=== PATIENT | female | born 1985 | race Caucasian/White ===

== ENCOUNTER 2019-11-26 07:29 | Emergency (ER) | payer OTHER, SELFPAY ==
[2019-11-26 07:42] VITALS: BP 135/84; PULSE 60; RESP 16; TEMP 36.5; O2SAT 100; BMI 37.8
[2019-11-26 07:50] LABS: Microscopic, Urine URINE MICROSCOPIC (MICROSCOPIC)
[2019-11-26 07:51] LABS: Appearance,Urine CLEAR (Clear); Bilirubin,Urine Negative (Negative); Blood, Urine 3+ (Negative); Color,Urine YELLOW (Yellow); Glucose,Urine (UA) Negative (Negative); Ketones,Urine 1+ (Negative); Leukocyte Esterase,Urine Negative (Negative); Nitrate,Urine Negative (Negative); PH,Urine 5.5 (5.0-8.5); Protein,Urine TRACE (Negative); Specific Gravity, Urine >= 1.030 (1.005-1.030); Urobilinogen,Urine 0.2 EU/dl (0.2)
[2019-11-26 07:59] LABS: Amorphous Sediment,Urine 1+ /lpf; RBC,Urine 20-50 #/hpf (0-3)
[2019-11-26 08:05] LABS: Basophils # 0.1 K/mm3 (0-0.2); Basophils % 0.9 % (0.1-2.0); Eosinophils # 0.1 K/mm3 (0.0-0.4); Eosinophils % 1.1 % (0.1-12.0); Hematocrit 44.8 % (37.0-47.0); Hemoglobin 15.5 g/dL (12.2-16.2); Lymphocytes # 1.6 K/mm3 (0.7-4.5); Lymphocytes % 14.9 % (10-50); Mean Corpuscular HGB Conc 34.5 g/dL (31.8-35.4); Mean Corpuscular Hemoglobin 30.6 pg (27.0-31.2); Mean Corpuscular Volume 88.8 fl (81-99); Mean Platelet Volume 7.9 fl (7.4-10.4); Monocytes # 0.4 K/mm3 (0.1-1.0); Monocytes % 3.8 % (1.7-9.3); Neutrophils # 8.5 K/mm3 (1.8-7.8); Neutrophils % 79.3 % (37.0-80.0); Platelet Count 274 K/mm3 (142-424); Red Blood Count 5.05 M/mm3 (4.20-5.40); White Blood Count 10.7 K/mm3 (4.8-10.8)
[2019-11-26 08:08] LABS: Chloride 96 mmol/L (98-107)
[2019-11-26 08:09] LABS: Sodium 138 mmol/L (136-145)
[2019-11-26 08:11] LABS: Alanine Aminotransferase 25 U/L (12-78); Albumin/Globulin Ratio 1.2 (1.1-1.8); Alkaline Phosphatase 96 U/L (38-126); Aspartate Amino Transferase 21 U/L (14-36); Bilirubin,Total 0.4 mg/dl (0.2-1.3); Blood Urea Nitrogen 10 mg/dl (7-17); Carbon Dioxide 26 mmol/L (22.0-30.0); Creatinine Clearance Estimated 189 mL/min (50-200); Estimated Glomerular Filt Rate 114 ml/min (>60); GFR (African American) 138 ML/MIN (>60); Globulin 4.1 g/dL (1.3-3.2); Total Protein,Serum 9.1 g/dl (6.3-8.2)
[2019-11-26 08:12] LABS: Calcium 10.6 mg/dl (8.4-10.2); Glucose 138 mg/dl (74-100)
--- NOTE | 2019-11-26 08:32 | HMH.EDABDPAI ---
ED Disposition Clinical Impression: Gastroenteritis Disposition: Home, Self-Care Condition on Discharge: Good Instructions: DI for Acute Abdomen Additional Instructions: Follow-up with your primary care doctor if symptoms fail to improve. Obviously if condition worsens please return back to the emergency department Prescriptions: Pantoprazole Sodium [Protonix 40mg (granule) packet] 40 mg PO DAILY 20 Days #20 packet Transmission Status: Pending to [facility] #[id number] Ondansetron [Zofran 4mg ODT] 4 mg PO TID PRN 6 Days #12 tab.rapdis PRN Reason: Nausea Transmission Status: Pending to [facility] #[id number] Referrals: Kait Schuster [Primary Care Provider] - - Critical Care Critical Care Time: No Attestation: On 11/26/19, the high probability of a clinically significant, sudden or life threatening deterioration of the following system(s) required my full and direct attention, intervention and personal management. The time I documented below is in addition to time spent performing reported procedures but includes the following listed in this critical care notation. Medical Decision Making - Medical Records Medical records reviewed: Yes: I reviewed the patient's medical records. - Rolando Inquiry Pt receiving controlled substance: No Vital Signs: 11/26/19 07:42 Temperature 97.7 F Temperature Source Oral Pulse Rate [Right Brachial] 60 Respiratory Rate 16 Blood Pressure [Right Arm] 135/84 Blood Pressure Mean [Right Arm] 101 Blood Pressure Source [Right Arm] Automatic Cuff Blood Pressure Position [Right Arm] Sitting 02 Sat by Pulse Oximetry 100 Oxygen Delivery Method Room Air - Lab Data Lab results reviewed: Yes: I reviewed the patient's lab results. Lab Results 11/26/19 07:35: Urine Color Yellow, Urine Appearance Clear, Urine pH 5.5, Ur Specific [place] >= 1.030, Urine Protein Trace, Urine Glucose (UA) Negative, Urine Ketones 1+, Urine Blood 3+, Urine Nitrate Negative, Urine Bilirubin Negative, Urine Urobilinogen 0.2, Ur Leukocyte Esterase Negative, Urine RBC 20-50, Urine WBC 3-5, Ur Squamous Epith Cells 10-20, Ur Transition Epith Cell 3-5, Amorphous Sediment 1+, Urine Bacteria None 11/26/19 07:58: WBC 10.7, RBC 5.05, Hgb 15.5, Hct 44.8, MCV 88.8, MCH 30.6, MCHC 34.5, RDW 13.0, Plt Count 274, MPV 7.9, Neut % (Auto) 79.3, Lymph % (Auto) 14.9, Davidson % (Auto) 3.8, Eos % (Auto) 1.1, Baso % (Auto) 0.9, Neut # (Auto) 8.5 H, Lymph # (Auto) 1.6, Davidson # (Auto) 0.4, Eos # (Auto) 0.1, Baso # (Auto) 0.1 11/26/19 07:58: Sodium 138, Potassium 4.0, Chloride 96 L, Carbon Dioxide 26, Anion Gap 20.0 H, BUN 10, Creatinine 0.60, Estimated Creat Clear 189, Estimated GFR 114, Est GFR ( Amer) 138, Glucose 138 H, Calcium 10.6 H, Total Bilirubin 0.4, AST 21, ALT 25, Alkaline Phosphatase 96, Total Protein 9.1 H, Albumin 5.0, Globulin 4.1 H, Albumin/Globulin Ratio 1.2 Result diagrams: 11/26/19 07:58 11/26/19 07:58 Orders (Tests/Meds): ED MEDICATIONS Discontinued Medications Generic Name Dose Route Start Last Admin Trade Name Freq PRN Reason Stop Dose Admin Ondansetron HCl 4 mg 11/26/19 08:26 11/26/19 08:26 Zofran 4mg/2ml Vial IV 11/26/19 08:27 4 mg ONCE ONE Administration Abdominal Pain HPI - General Chief Complaint: Abdominal Pain Stated Complaint: stomach pain Time Seen by Provider: 11/26/19 08:32 Mode of Arrival: Ambulatory Source of Information: Patient Limitations: No Limitations Description of Symptoms (Recalled from ER Triage Doc. by RN): Mom advises that pt c/o belly pain since about 2 am. C/o some nausea - History of Present Illness HPI narrative: 34-year-old female presents the ED with epigastric mild abdominal pain and nausea with 2 or 3 episodes of emesis she chronically feels nausea over the last 2 to 3 days but she is has had some emesis today her mother states that she complains of epigastric pain describes the pain almost as a burning sensation. Kirk
[2019-11-26 08:48] VITALS: BP 135/84; PULSE 65; RESP 16; TEMP 36.6; O2SAT 98
== END 2019-11-26 08:50 | disposition home or self-care (01) ==
PROVIDERS: Emergency Provider Family Medicine; PCP Nurse Practitioner Family
DX: K52.9 Noninfective gastroenteritis and colitis, unspecified (principal); Z88.0 Allergy status to penicillin; Z88.5 Allergy status to narcotic agent
CPT/HCPCS: 80053; 81001; 85025; 96374; 99283; J2405

== ENCOUNTER 2020-07-01 11:17 | Emergency (ER) | payer OTHER, SELFPAY ==
[2020-07-01 11:35] VITALS: BP 145/70; PULSE 92; RESP 14; TEMP 37; O2SAT 99; BMI 35.9
--- NOTE | 2020-07-01 11:47 | HMH.EDUTC ---
[facility] [place] Clinical Impression: Exposure to COVID-19 virus Sinusitis Qualifiers: Sinusitis location: unspecified location Chronicity: acute Recurrence: non-recurrent Qualified Code(s): J01.90 - Acute sinusitis, unspecified Disposition: Home, Self-Care Condition on Discharge: Good Instructions: DI for Sinusitis, Preventing the Spread of Coronavirus Discharge Instructions Additional Instructions: Drink plenty of fluids. Take tylenol for pain or fever. Return if you begin to have difficulty breathing. Follow up with your regular doctor. GO TO THE ER FOR ANY WORSENING SYMPTOMS Prescriptions: Azithromycin [Z-Anthony 250mg Tab*] 250 mg PO UD DOSE PK #6 tab Transmission Status: Received by [facility] Referrals: Jeremías Moy MD [Primary Care Provider] - Time of Disposition: 11:59 Medical Decision Making - Medical Records Medical records reviewed: No: I reviewed the patient's medical records. - Rolando Inquiry Pt receiving controlled substance: No Vital Signs: 07/01/20 11:35 07/01/20 11:58 Temperature 98.6 F 98.6 F Temperature Source Oral Pulse Rate 92 H Pulse Rate [Right Brachial] 92 H Respiratory Rate 14 14 Blood Pressure 145/70 H Blood Pressure [Right Arm] 145/70 H Blood Pressure Mean [Right Arm] 95 Blood Pressure Source [Right Arm] Automatic Cuff Blood Pressure Position [Right Arm] Sitting 02 Sat by Pulse Oximetry 99 Oxygen Delivery Method Room Air Orders (Tests/Meds): ORDERS Category Date Time Status Covid-19 Nasal PCR Sendout [facility] 07/01/20 11:30 Received [facility] [place] - General Stated complaint: covid exposure Time Seen by Provider: 07/01/20 11:47 Mode of Arrival: Ambulatory Source of Information: Patient Limitations: No Limitations Description of Symptoms (Recalled from Triage Doc. by RN): REQUESTING COVID TEST D/T EXPOSURE HEENT Symptoms (Recalled from RN notes): No Resp Symptoms (Recalled from RN notes): No Skin Symptoms (Recalled from RN notes): No MS Symptoms (Recalled from RN notes): No Functional Status (Recalled from RN notes): WNL - History of Present Illness Provider Complaint: She was exposed to covid last week by her sister having it. This patient has had sinus drainage, low grade fever and decreased appetite. She thinks that she may just have a sinus infection, but she needs to be tested for covid. - Related Data Previous Rx's Medication Instructions Recorded Ondansetron [Zofran 4mg ODT] 4 mg PO TID PRN 6 Days #12 11/26/19 tab.rapdis Pantoprazole Sodium [Protonix 40mg 40 mg PO DAILY 20 Days #20 packet 11/26/19 (granule) packet] Azithromycin [Z-Anthony 250mg Tab*] 250 mg PO UD DOSE PK #6 tab 07/01/20 Allergies Allergy/AdvReac Type Severity Reaction Status Date / Time codeine Allergy Verified 11/26/19 07:46 Penicillins Allergy Verified 11/26/19 07:46 promethazine [From Phenergan] Allergy Verified 11/26/19 07:46 - Worker's Comp Is this a Worker's Comp case?: No [facility] History - Hepatitis A Screen Drug use history?: No High risk sexual behaviors?: No History of sexually transmitted infection?: No Currently employed?: No Childcare worker?: No Do you have indoor plumbing?: Yes Do you have electricity?: Yes Attestation statement:: This patient has been screened for Hepatitis A risk factors. I have reviewed the patient's past medical history: Yes Medical History: Denies:: Cancer, Diabetes Mellitus Type 1, Diabetes Mellitus Type 2, MRSA Amputation: No - Social History Smoking Status: Never smoker Alcohol Intake: never Occupational Status: other ROS Obtained: Yes All systems reviewed & no additional complaints - Constitutional Constitutional: Reports system reviewed and no additional complaints, except as docu - Eyes Eyes: Reports system reviewed and no additional complaints, except as docu - ENT Ears, Nose, Mouth, and Throat: Reports system reviewed and no additional complaints,
[2020-07-01 11:58] VITALS: BP 145/70; PULSE 92; RESP 14; TEMP 37; O2SAT 99
[2020-07-03 15:21] LABS: Covid-19 Nasal PCR Sendout Lex Not Detected
== END 2020-07-01 12:00 | disposition home or self-care (01) ==
LOC: UTC 11:19
PROVIDERS: Emergency Provider Nurse Practitioner Family; PCP Internal Medicine Adolescent Medicine
DX: Z20.828 Contact with and (suspected) exposure to other viral communicable diseases (principal); J01.90 Acute sinusitis, unspecified
CPT/HCPCS: 99201; U0004

== ENCOUNTER → 2020-07-01 12:38 | Outpatient (CLI) | payer OTHER, SELFPAY ==
[2020-07-01 15:57] LABS: Coronavirus 19 IgG Antibody Positive (Negative)
[2020-07-01 15:59] LABS: Coronavirus 19 IgM Antibody Positive (Negative)
== END ==
PROVIDERS: PCP Internal Medicine Adolescent Medicine; Visit Provider Internal Medicine Adolescent Medicine
DX: Z03.818 Encounter for observation for suspected exposure to other biological agents ruled out (principal)
CPT/HCPCS: 86328